=== PATIENT | female | born 1950 | race Two or more races ===

== ENCOUNTER 2021-05-04 17:35 | Emergency (ER) | payer MEDICAID, MEDICARE ==
[~2021-05-04] VITALS: Ht 154.9 cm; Wt 63.2 kg
--- NOTE | 2021-05-04 18:13 | NUR ---
CONTACT WITH PT, 71 YR OLD FEMALE HERE WITH C/O "ABD PAINS, BM'S RISING BP AND SUGAR LEVELS, FATIGUE AND HER STOMACH IS MORE BLOATED THAN USUAL" THE DIARRHEA GOT REALLY EXCESSIVE THE LAST FEW DAYS. PAIN FOR 1-2 WEEKS.
--- NOTE | 2021-05-04 18:24 | NUR ---
PT TO BR TO ATTEMPT TO OBTAIN URINE SPECIMAN
--- NOTE | 2021-05-04 18:41 | NUR ---
DR KRUEGER AT BEDSIDE TO EVAL PT.
[2021-05-04 18:43] LABS: MICROSCOPIC AUTO
[2021-05-04] MEDS ORDERED: SODIUM CHLORIDE FLUSH 10ML SYR IVF ONE (19:00)
[2021-05-04] MEDS ORDERED: SODIUM CHLORIDE 0.9% 1,000ML IVBOLUS ONE (19:00)
--- NOTE | 2021-05-04 19:03 | NUR ---
IV STARTED. IV FLUIDS INFUSING WITHOUT REDNESS/SWELLING. PT AND PTS DAUGHTER UPDATED ON POC. NO NEEDS AT THIS TIME
[2021-05-04 19:19] LABS: BASOPHILS % (AUTO) 1 % (0-1); EOSINOPHILS % (AUTO) 1 % (1-7); LYMPHOCYTES % (AUTO) 45 % (22-44); MEAN CORPUSCULAR HEMOGLOBIN 30.3 pg (27.0-34.8); MEAN CORPUSCULAR HGB CONC 34.1 g/dL (32.4-35.8); MEAN PLATELET VOLUME 9.4 fL (7.4-10.4); MONOCYTES % (AUTO) 7 % (2-9); NEUTROPHILS % (AUTO) 47 % (42-75); PLATELET COUNT 220 x10^3/uL (130-400); RED BLOOD COUNT 3.98 x10^6/uL (3.82-5.3); RED CELL DISTRIBUTION WIDTH 12.8 % (9.6-15.2)
[2021-05-04 19:26] LABS: ALANINE AMINOTRANSFERASE 55 U/L (12-78); ALBUMIN 3.9 g/dL (3.4-5.0); ANION GAP 7 mmol/L (5-15); CALCIUM 9.3 mg/dL (8.5-10.1); CHLORIDE 106 mmol/L (98-107); CREATININE 0.91 mg/dL (0.55-1.02)
[2021-05-04 19:28] LABS: ALKALINE PHOSPHATASE 78 U/L (45-117); BILIRUBIN,TOTAL 0.5 mg/dL (0.2-1.0); TOTAL PROTEIN 7.8 g/dL (6.4-8.2)
--- NOTE | 2021-05-04 20:05 | NUR ---
PT IN CT
--- NOTE | 2021-05-04 20:20 | NUR ---
PT BACK IN ROOM FROM CT. NO SIG CHANGE AT THIS TIME. ALL TESTING RESULTED. CHART PUT UP FOR MD RECHECK
[2021-05-04 21:10] VITALS: BP 143/71
--- NOTE | 2021-05-04 21:10 | NUR ---
PT DOZING INTERMITTENTLY, AROUSES EASILY. IV FLUIDS COMPLETED INFUSING. AWAITING MD RE-EVAL.
--- NOTE | 2021-05-04 21:29 | NUR ---
PT UP TO BR, GAIT SLOW AND STEADY. PT TO BE DC'D.
[2021-05-04] MEDS ORDERED: CEFDINIR 300 MG CAPSULE ONE (21:48)
--- NOTE | 2021-05-04 21:54 | NUR ---
PT MEDICATED ORDERED. IV DC'D WITH CANNULA INTACT. REVIEWED DC INSTRUCTIONS WITH PT. UNDERSTANDING VERBALIZED. PT DECLINED W/C. PT LEFT AMB, GAIT SLOW AND STEADY.
[2021-05-04] MEDS ORDERED: CEFDINIR 300 MG CAPSULE PO ONE (22:00)
== END 2021-05-04 21:58 | disposition home or self-care (01) ==
LOC: ED 18:00
DX: N30.00 Acute cystitis without hematuria (principal); I10 Essential (primary) hypertension; E11.9 Type 2 diabetes mellitus without complications; E78.5 Hyperlipidemia, unspecified; Z90.49 Acquired absence of other specified parts of digestive tract
CPT/HCPCS: 36415; 74177; 80053; 81001; 85025; 87077; 87086; 87186; 96360; 96361; 99285; J7030